=== PATIENT | female | born 1990 | race African-American/Black ===

== ENCOUNTER 2018-02-22 02:03 | Emergency (ER) | payer MEDICAID ==
[~2018-02-22] VITALS: Ht 172.7 cm; Wt 79.0 kg
[2018-02-22 07:15] VITALS: BP 109/67
== END 2018-02-22 07:16 | disposition home or self-care (01) ==
LOC: ER 02:03
DX: S00.12XA Contusion of left eyelid and periocular area, initial encounter (principal); S00.83XA Contusion of other part of head, initial encounter; Y04.2XXA Assault by strike against or bumped into by another person, initial encounter; Y93.89 Activity, other specified; Y92.89 Other specified places as the place of occurrence of the external cause
CPT/HCPCS: 99283